=== PATIENT | male | born 1985 | race Caucasian/White ===

== ENCOUNTER → 2023-12-26 | Outpatient (CLI) | payer OTHER ==
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
== END ==
LOC: 3 N SLEEP 14:53
PROVIDERS: ATTEND Internal Medicine Critical Care Medicine
DX: G47.10 Hypersomnia, unspecified (principal); E66.01 Morbid (severe) obesity due to excess calories; E78.5 Hyperlipidemia, unspecified; F41.9 Anxiety disorder, unspecified; F32.A Depression, unspecified; Z83.6 Family history of other diseases of the respiratory system; Z68.42 Body mass index [BMI] 45.0-49.9, adult
CPT/HCPCS: 99211

== ENCOUNTER 2024-02-11 18:55 | Outpatient (CLI) | payer OTHER ==
--- NOTE | 2024-02-26 17:42 | P.PCN ---
Date of Procedure: 02/11/24 Description of Procedure: Polysomnography report Date of service as 02/11/2024 This is a 38-year-old male patient who was seen at the sleep center for consultation for chronic hypersomnia sleepiness. The patient has an Tampa score of 17 and high likelihood for obstructive sleep apnea based on symptoms of snoring, sleep fragmentation along with chronic hypersomnia sleepiness. He has a positive family history for obstructive sleep apnea. He has chronic anxiety and depression maintained on Wellbutrin Pertinent physical findings Patient has a body mass index of 45 with a weight of 370 pounds, his height is 6 feet and 4 inches Technical description The patient was studied using a standard complex polysomnography protocol that included recording of the 2 EKG, Central, occipital and frontal EEG, right and left outer canthus EOG, submental EMG, right and left anterior tibialis EMG, respiratory airflow by thermocouple and or pressure/flow transducer, respiratory efforts by abdominal and thoracic PVDF belts, oxygen saturation by cable oximetry. Position by observation synchronized the PSG. quipment used: [employer]. Sleep characteristics The patient had a total recording time of 417 minutes. The total sleep time was 3 and 92.5 minutes. The wake after sleep onset time was 13.5 minutes. The overall sleep efficiency was 94.1%. The sleep latency time was 10 minutes. Latency to REM sleep was 113 minutes. The sleep architecture was characterized by 15% stage I, 68.5% stage II, 0% stage III and 16.4% REM sleep. The total arousal index was 63.3. Respiratory analysis The patient's sleep study showed a total of 649 obstructive events of which 0 obstructive apneas, 2 were mixed apneas, 647 were obstructive hypopneas and the patient had an AHI of 95.7. Central apnea index was 0. The total arousal index related to respiratory events was 63. The respiratory arousal index was 32.7 Oxygenation analysis The patient has severe nocturnal oxygen desaturation. The baseline pulse ox while awake was 92%. Lowest pulse ox was 54% during REM sleep. The patient spent approximately 2 hours and 49 minutes of sleep time below pulse ox of 89% consistent with severe obstructive sleep apnea and severe nocturnal oxygen desaturation Arousal index The patient had a high arousal index. There was a there was a total of 414 arousals with an index of 63.3. Respiratory arousal index was 32. Cardiac summary Average heart rate was 78 with a minimum heart rate of 68 and a maximum heart rate of 90 Periodic limb movements A total of 4. Regular movement activity without any arousals with an index of 0.6 Assessment Severe symptomatic obstructive sleep apnea with an AHI of 95.7 associated with severe nocturnal oxygen desaturation with a minimum pulse ox of 54% Chronic hypersomnia with an Tampa score of 17 Obesity with a BMI of 45 Chronic anxiety and depression maintained on Wellbutrin Hyperlipidemia Plan Encourage weight loss pill optimize sleep hygiene measures. Maintain regular sleep schedule. Proceed with an in lab CPAP titration to treat this patient's severe obstructive sleep apnea.
== END 2024-02-12 05:17 | disposition home or self-care (01) ==
LOC: 3 N SLEEP 18:55
PROVIDERS: ATTEND Internal Medicine Critical Care Medicine
DX: G47.33 Obstructive sleep apnea (adult) (pediatric) (principal); G47.10 Hypersomnia, unspecified; E66.9 Obesity, unspecified; Z68.42 Body mass index [BMI] 45.0-49.9, adult; F32.A Depression, unspecified; F41.9 Anxiety disorder, unspecified; E78.5 Hyperlipidemia, unspecified
CPT/HCPCS: 95810

== ENCOUNTER 2024-04-07 19:42 | Outpatient (CLI) | payer OTHER ==
--- NOTE | 2024-04-09 14:34 | P.PCN ---
Date of Procedure: 04/07/24 Operative Findings: CPAP titration study Date of service is 04/07/2024 History This is a 38-year-old male patient who was seen at the sleep center for consultation for chronic hypersomnia sleepiness. The patient has an Corrigan score of 17 and high likelihood for obstructive sleep apnea based on symptoms of snoring, sleep fragmentation along with chronic hypersomnia sleepiness. He has a positive family history for obstructive sleep apnea. He has chronic anxiety and depression maintained on Wellbutrin the patient underwent a screening study and the patient was found to have severe obstructive sleep apnea with an AHI of 95.7 associated with severe nocturnal oxygen desaturations. Based on that, the patient is coming in for a CPAP titration study. Pertinent physical findings Patient has a body mass index of 45 with a weight of 370 pounds, his height is 6 feet and 4 inches Technical description The patient was studied using a standard complex polysomnography protocol that included recording of the 2 EKG, Central, occipital and frontal EEG, right and left outer canthus EOG, submental EMG, right and left anterior tibialis EMG, respiratory airflow by thermocouple and or pressure/flow transducer, respiratory efforts by abdominal and thoracic PVDF belts, oxygen saturation by cable oximetry. Position by observation synchronized the PSG. Stepwise CPAP titration was done to eliminate all obstructive respiratory events equipment used: [employer]. Sleep architecture The total recording duration was 410.5 minutes. The total sleep time was spent 75.0 minutes. The overall sleep efficiency was 91.4%. The latency to sleep onset was 12 minutes. The latency to REM sleep was 40 minutes. Sleep architecture was catheterized by 5.2% stage I, 60.7% stage II, 0% stage III and 35.3% REM sleep. The wake after sleep onset time was 23 minutes. The total arousal index was 5.6 Respiratory analysis CPAP titration was started initially at a pressure of 9 cm of water and pressure was gradually increased by increments of 1 cm region CPAP pressure of 15 cm of water. CPAP therapy was ineffective and the patient continued to have obstructive respiratory events and desaturations especially during REM sleep. At that point, the patient was switched to a BiPAP and the patient was started on a BiPAP pressure of 12/8 and the patient was increased incrementally by 1 cm to reach a maximum BiPAP pressure of 19 over 15 cm of water. I carefully reviewed the BiPAP titration taken, the patient sleep stage and body position. I noted that at the various BiPAP pressures, the patient was more effectively treated and the patient was able to maintain a saturation above 90%. This was noted at various sleep stages and body positions. As such, this was a successful BiPAP titration Oxygenation analysis The patient's oxygen saturations recovered while being on BiPAP therapy Sleep continuity summary The patient had a total of 35 arousals with an index of 5.6. The respiratory arousal index was 1.9 Periodic limb movements The patient had a total of 15 periodic limb movement activity with an index of 2.4 Cardiac summary Average heart rate was 70, minimum heart rate of 64 and a maximum heart rate of 74, rhythm was sinus Assessment Severe symptomatic obstructive sleep apnea with an AHI of 95.7 associated with severe nocturnal oxygen desaturation with a minimum pulse ox of 54%, the patient underwent CPAP/BiPAP titration. The patient was found to be more effective treatment while being on BiPAP. Chronic hypersomnia with an Corrigan score of 17 Obesity with a BMI of 45 Chronic anxiety and depression maintained on Wellbutrin Hyperlipidemia Plan Based on this current titration, the CPAP therapy itself was ineffective and the patient continues to have obstructive respiratory events. BiPAP therapy was successful and the patient had adequate elimination of the obstructive respiratory events while being on various BiPAP pressures. As such, the patient is going to be started on a VPAP auto with a EPAP minimum of 10 and maximum 20 with a pressure support of 4. Patient is going to be provided a medium size AirFit F20 fullface mask. The patient will see him back in the office in 30 to 90 days. Suspect response and compliancy and further adjustments will be done accordingly. Will continue to follow.
== END 2024-04-08 05:25 | disposition home or self-care (01) ==
LOC: 3 N SLEEP 19:42
PROVIDERS: ATTEND Internal Medicine Critical Care Medicine
DX: G47.33 Obstructive sleep apnea (adult) (pediatric) (principal); E78.5 Hyperlipidemia, unspecified; E66.9 Obesity, unspecified; F32.A Depression, unspecified; G47.10 Hypersomnia, unspecified; F41.9 Anxiety disorder, unspecified; Z68.42 Body mass index [BMI] 45.0-49.9, adult; Z99.89 Dependence on other enabling machines and devices
CPT/HCPCS: 95811